=== PATIENT | male | born 1995 ===

== ENCOUNTER 2021-06-16 11:37 | Emergency (ER) | payer MEDICAID, OTHER ==
[~2021-06-16] VITALS: Ht 175.3 cm; Wt 72.6 kg
[2021-06-16] MEDS ORDERED: FLUORESCEIN SOD OPTH TEST STRIP OP ONE (12:00)
[2021-06-16 12:08] VITALS: BP 140/87
[2021-06-16] MEDS ORDERED: CIP03OS RIGHTEYE (12:19)
== END 2021-06-16 12:39 | disposition home or self-care (01) ==
LOC: ER 11:37
DX: T15.01XA Foreign body in cornea, right eye, initial encounter (principal); F17.210 Nicotine dependence, cigarettes, uncomplicated; F12.10 Cannabis abuse, uncomplicated; W22.8XXA Striking against or struck by other objects, initial encounter; Y93.89 Activity, other specified; Y92.89 Other specified places as the place of occurrence of the external cause; Y99.8 Other external cause status
CPT/HCPCS: 65222